=== PATIENT | female | born 1980 | race Caucasian/White ===

== ENCOUNTER → 2019-07-24 15:16 | Outpatient (CLI) | payer OTHER, SELFPAY ==
[2019-07-24 15:36] LABS: Basophils % 0.4 % (0.1-2.0); Eosinophils # 0.1 K/mm3 (0.0-0.4); Eosinophils % 0.8 % (0.1-12.0); Hemoglobin 14.1 g/dL (12.2-16.2); Lymphocytes # 2.7 K/mm3 (0.7-4.5); Lymphocytes % 27.6 % (10-50); Mean Corpuscular HGB Conc 33.6 g/dL (31.8-35.4); Mean Corpuscular Hemoglobin 30.2 pg (27.0-31.2); Mean Corpuscular Volume 89.9 fl (81-99); Mean Platelet Volume 7.4 fl (7.4-10.4); Monocytes # 0.7 K/mm3 (0.1-1.0); Monocytes % 7.5 % (1.7-9.3); Neutrophils # 6.2 K/mm3 (1.8-7.8); Neutrophils % 63.6 % (37.0-80.0); Platelet Count 291 K/mm3 (142-424); Red Blood Count 4.67 M/mm3 (4.20-5.40); Red Cell Distribution Width 12.3 % (11.5-17.5); White Blood Count 9.7 K/mm3 (4.8-10.8)
--- NOTE | 2019-07-24 15:37 | ECG_ITS ---
APPROVED REPORT Exam: Resting ECG HR:99 bpm ECG Measurements Heart Rate 99 AXES HI 146 P 85 QRSd 80 QRS 95 QT 338 T 63 QTc 433 <Conclusion> Normal sinus rhythm Rightward axis Borderline ECG Electronically signed by : Viktro Jo, 07/24/2019 15:55:16
--- NOTE | 2019-07-24 15:43 | CA_ITS ---
APPROVED REPORT EXAM: Comprehensive 2D, Doppler, and color-flow Echocardiogram Orchestra Leader: Monica Tovar RT(R) Ht: 5 ft 1 in Wt: 127lbs BSA: 1.56 BP: 188/85 mmHg Indications: CP, MVP, heart murmur, palpitations, HTN, TROTTER, chest tightness 2D Dimensions Aortic Root 2.20 cm F: 2.7 - 3.3 Left Atrium 2.60 cm F: 2.7 - 3.8 LVOT 1.89 cm (M/F) 1.5-2.5 M-Mode Dimensions RVDd 2.16 cm (0.9-2.6) LVDd 4.28 cm (3.5-5.7) LVDs 2.91 cm (3.5-5.7) IVSd 0.79 cm (0.6-1.1) PWd 0.61 cm (0.6-1.1) EF (Teich) 60.50% FS 32.00% EDV (Teich) 82.20 mL ESV (Teich) 32.50 mL LV Diastology E/A Ratio 1.15 Mitral Valve MV A Velocity 85.00 (40-130 cm/s) Left Ventricle Left atrium is normal size, left ventricle is normal size, there is no concentric left ventricular hypertrophy, visually estimated ejection fraction 55% with no regional wall motion abnormality, diastolic parameters are within normal range. Right Ventricle Right atrium and right ventricular normal size and contractility. Aortic Valve Aortic valve is grossly normal, there is no aortic stenosis aortic insufficiency. Mitral Valve Mitral valve is grossly normal, there is no mitral stenosis, there is trace mitral regurgitation. Tricuspid Valve Tricuspid valve is grossly normal, there is trace tricuspid regurgitation. Tricuspid regurgitation jet velocity is inadequate for calculation of the right ventricular systolic pressure. Pulmonic Valve Pulmonic valve is poorly visualized. Great Vessels Aortic root is normal size. Pericardium No significant pericardial effusion noted. Conclusion 1. Normal left ventricular size, preserved left ventricular systolic function, visually estimated ejection fraction 55% with no regional wall motion abnormality, diastolic parameters are within normal range. 2. Trace mitral and tricuspid regurgitation. 3. No significant pericardial effusion noted. Electronically signed by : Kade Perez, 07/27/2019 06:21:24
[2019-07-24 15:53] LABS: D-Dimer < 100 ng/mL (0-400)
[2019-07-24 16:11] LABS: Alanine Aminotransferase 22 U/L (12-78); Albumin Level 3.9 gm/dL (3.4-5.0); Albumin/Globulin Ratio 1.2 (1.1-1.8); Alkaline Phosphatase 52 U/L (46-116); Anion Gap 14.7 mEq/L (5-15); Aspartate Amino Transferase 12 U/L (15-37); Bilirubin,Total 0.2 mg/dL (0.2-1.0); Blood Urea Nitrogen 10 mg/dL (7-18); CKMB Relative Index 1.3 U/L (0-4.0); Carbon Dioxide 25 mmol/L (21.0-32.0); Chloride 104 mmol/L (98-107); Creatine Kinase 76 U/L (26-192); Estimated Glomerular Filt Rate 94 ml/min (>60); GFR (African American) 114 ML/MIN (>60); Globulin 3.3 gm/dl (1.3-3.2); Glucose 108 mg/dL (74-106); Potassium 3.7 mmoL/L (3.5-5.1); Sodium 140 mmol/L (136-145); Total Protein,Serum 7.2 gm/dL (6.4-8.2); Troponin I < 0.02 ng/ml (0.00-0.06)
== END ==
PROVIDERS: Visit Provider Physician Assistant
DX: R07.9 Chest pain, unspecified (principal)
CPT/HCPCS: 36415; 80053; 82550; 82553; 84484; 85025; 85378; 93005; 93306

== ENCOUNTER → 2021-05-24 20:12 | Outpatient (CLI) | payer OTHER, SELFPAY | PROVIDERS: Visit Provider Nurse Practitioner Family | DX: Z20.822 Contact with and (suspected) exposure to COVID-19 (principal); U07.1 COVID-19 | CPT/HCPCS: U0003 ==

== ENCOUNTER 2024-08-04 16:32 | Outpatient (CLI) | payer OTHER, SELFPAY ==
--- NOTE | 2024-08-04 16:37 | MM_ITS ---
PROCEDURE INFORMATION: Exam: MG Bilateral Screening 3D Mammography Exam date and time: 08/04/2024 4:21 PM Age: 44 years old Clinical indication: Screening examination TECHNIQUE: Imaging protocol: Bilateral Screening tomosynthesis and 2D mammography including computer-aided detection (CAD) when performed. COMPARISON: No relevant prior studies available. FINDINGS: MAMMOGRAPHY: Breast composition: The breasts are heterogeneously dense, which may obscure small masses. Mass: None. Architectural distortion: None. Calcifications: No suspicious calcifications. Asymmetric density: None. Skin thickening: None. Axillary adenopathy: None. IMPRESSION: No mammographic evidence of malignancy. Annual screening is recommended unless otherwise clinically indicated. ASSESSMENT: BI-RADS Category 1: Negative.
== END 2024-08-04 23:59 | disposition home or self-care (01) ==
LOC: RAD 16:34
PROVIDERS: PCP Family Medicine; Visit Provider Family Medicine
DX: Z12.31 Encounter for screening mammogram for malignant neoplasm of breast (principal)
CPT/HCPCS: 77063; 77067

== ENCOUNTER 2025-07-20 10:41 | Outpatient (CLI) | payer OTHER, SELFPAY ==
--- OUTSIDE RECORDS SUMMARY | 2024-09-14 05:45 | XMS_ITS ---
Author Organization [facility] [place], [facility] Address [address] [place] [address] Care Team Providers Care Internal Control Consultant Name Role Phone Melissa Allen Unavailable [phone] Rachel Ferro Unavailable [phone] REASON FOR VISIT Annual Social History Sex Assigned At : Social History Observation Description Sex Assigned At Female Encounters Encounter Location Date Provider Diagnosis [facility] [address] [place] [address] 09/14/2024 Rachel Ferro Plan Of Treatment Next Appt Details Provider Name:Cary Nino , 10/05/2025 09:15:00 AM, [address], [place], [address], Progress Notes * Abigail VILLAVICENCIO BDOB:[birth year] (45 yo F)Acc No.[id number]:09/14/2024 Progress Note Patient: Ching Abigail fong Provider: Miladys FERRO APRN :1980 A ge:44 Y S ex:Female Date:09/14/2024 Address:[address] [place], [place] [address] Subjective: * Chief Complaints: * A nnual * Electronic signature of Rachel Ferro APRN on 07/20/2025 at 10:55 AM EST Sign off status: Pending Visit Status: R /S (Rescheduled) * Provider: Miladys FERRO APRN Date: 1 Generated for Dominic lyons/Sam/Pam on: 09/19/2024 10:55 AM EST
--- OUTSIDE RECORDS SUMMARY | 2025-07-20 10:55 | XMS_ITS | Patient Health Record ---
Author Organization [facility] Address [address] [place] [address] Care Team Providers Care Piecer Up Name Role Phone Melissa Allen Unavailable [phone] Rachel Ferro Unavailable [phone] Allergies Allergen (clinical drug ingredient) Drug/Non Drug Allergy documented on EMR Reaction Allergy Type Onset Date Status clindamycin CLINDAMYCIN PHOSPHATE Unspecified Drug Allergy 1 Active penicillin V PENICILLIN V POTASSIUM Unspecified Drug Allergy 06/24/2009 Active Results Component Value Reference Range Notes Pap w/HPV Reviewed date:10/05/2024 11:44:47 AM Interpretation:Pap normal, HPV negative Performing Lab:Evelyn HERNANDEZ [facility] - JULIEN CLIA ID [id number], [address], [address], [place] [address], Director - Scott Bains MD Notes/Report: Any Nucleic Acid Amplification testing is performed on the [employer] [place]. Diagnosis: Negative for intraepithelial lesion or malignancy. AP results FINAL BOOKKEEPERS SUPERVISOR CYTOLOGY REPORT DIAGNOSIS: Negative for intraepithelial lesion or malignancy. Specimen Adequacy: Satisfactory for interpretation with endocervical/transformat ion zone component present. Pertinent Clinical History/History of Surgery: Not provided Collection Technique: Not provided Results of Last Pap: Not provided LMP: . Date of Last Pap: Not provided Specimen Source: Cervical/Endocervical Specimen Type: ThinPrep Other Gynecological Patient Information: Not provided Recommendation: Follow-up based on current clinical guidelines and/or clinical consideration. Screening note: This specimen has been analyzed by the [employer] System, an interactive computer system which assists the lab in screening of ThinPrep Pap Test slides. Following imaging, the slide was reviewed by a Animal Keeper Head and/or Pathologist. Negative Educational Note: The pap screening test aids in the detection of premalignant and malignant states of the cervix. False positive and negative results may occur. It is not a diagnostic test. If abnormal cells are reported, follow-up based on current clinical guidelines and/or clinical consideration is recommended. Haylee Stokes Animal Keeper Head CPT Codes: 73701 ICD Codes: Z01.419 HPV High-Risk Negative Negative Reason For Referral No Information Medications Medication SIG (Take, Route, Frequency, Duration) Notes Start Date End Date Status Labetalol HCl 100 MG Tablet 1 tablet Ora lly Twice a day Active Escitalopram Oxalate 20 MG Tablet 1 tablet Orally Once a day Active Social History Tobacco Use: Social History Observation Description Date Details (start date - stop date) Never Smoker NA - NA Sex Assigned At : Social History Observation Description Sex Assigned At Female Social History Tobacco Use: Social Info Question Answer Notes Tobacco Control (Standard) Tobacco use: Nonsmoker Problems Problem Type SNOMED Code ICD Code Onset Dates Problem Status W/U Status Risk Notes Problem Gynecological examination normal ([id number] ) Cervical smear, as part of routine gynecological examination (Z01.419) 04/01/20 17 Active confirmed Annual without abnormal findings Vital Signs Blood pressure diastolic 72 mm Hg 09/28/2024 Height 64 in 09/28/2024 Blood pressure systolic 124 mm Hg 09/28/2024 Weight 143.0 lbs 09/28/2024 BMI 24.54 kg/m2 09/28/2024 Encounters Encounter Location Date Provider Diagnosis [facility] [address] [address] 09/28/2024 Rachel Ferro Senior Windows Systems Administrator exam without abnormal findings Z01.419 and Visit for screening mammogram Z12.31 Assessments Encounter Date Diagnosis (ICD Code) Assessment Notes Treatment Notes Treatment Clinical Notes Section Notes 09/28/2024 Senior Windows Systems Administrator exam without abnormal findings (ICD-10 - Z01.419) Normal annual exam Pap obtained BSE encouraged MMG UTD Follow up annual exam or PRN 09/28/2024 Visit for screening mammogram (ICD-10 - Z12.31) Plan Of Treatment Next Appt Details Provider Name:Cary Nino , 10/05/2025 09:15:00 AM, [address] [facility] [address], [place], [address], Insurance Providers Payer Name Payer Address Payer Phone Subscriber Number Group Number Insured Name Patient Relationship to Insured Coverage Start Date Coverage End Date [facility] [address] [address] [place], [place] [id number] Abigail Villavicencio Self - patient is the insured Medical (General) History Medical History History ICD Code Abnormal Pap Smear Herpes Mitral Valve Prolapse High Blood Pressure Surgical History Surgery Date(Month/Year) Ear tubes at a young age
--- OUTSIDE RECORDS SUMMARY | 2025-07-20 10:55 | XMS_ITS | Clinical Summary ---
Author Organization [facility] Address [address] [place] [id number] Care Team Providers Care Child Care Giver Name Role Phone Provider, No Known Primary Care Provider Allergies Active Allergy Reactions Criticality Noted Date Comments Clindamycin/Lincomycin GI Intolerance 6 Penicillins Rash Low 08/09/2016 Medications Vit-Fe Fumarate-FA ( 27-) 27-1 MG tablet tablet Take 1 tablet by mouth Daily. Active ibuprofen (ADVIL,MOTRIN) 600 MG tablet Take 1 tablet by mouth Every 6 (Six) Hours As Needed for mild pain (1-3). 60 tablet 08/11/2016 Active Active Problems Problem Noted Date Diagnosed Date Labor without complication 08/09/2016 Family History Medical History Relation Name Comments Coronary artery disease Maternal Grandmother Hypertension Maternal Grandmother Stroke Maternal Grandmother Relation Name Status Comments Maternal Grandmother Social History Tobacco Use Types Packs/Day Years Used Date Smoking Tobacco: Never Alcohol Use Standard Drinks/Week Comments No 0 (1 standard drink = 0.6 oz pur e alcohol) Abuse Screen Answer Date Recorded Unsafe at Home or Work/School Not on file Feels Threatened by Someone? Not on file 05/2023 Does Anyone Keep You from Co ntacting Others or Doint Things Outside the Home? Not on file 06/24/2023 Physical Sign of Abuse Present Not on file 1 Housing Stability Answer Date Recorded Current Living Arrangements Not on file 05/2023 Potentially Unsafe Housing Conditions Not on marcy e 06/24/2023 Family and Community Support Answer Sim e Recorded Help with Day-to-Day Activities Not on file 06/24/2023 Lonely or Isolated Not on file 06/24/2023 Employment Answer Date Recorded Do you want help finding or keeping work or a reinaldo b? Not on file 06/24/2023 Disabilities Answer Date Recorded Concentrating, Remembering, or Making Decisions Difficulty Not on file 06/24/2023 Doing Errands Independently Difficulty Not on fi le 06/24/2023 Education Answer Date Recorded Help with school or training? Not on file Preferred Language Not on file 06/24/2023 Comments No Sex and Gender Information Value Date Recorded Sex Assigned at Not on file Legal Sex Female 1:04 PM EDT Gender Identity Not on file Sexual Orientation Not on file Last Filed Vital Signs Vital Sign Reading Time Taken Comments Blood Pressure 111/64 08/11/2016 8:00 AM EST Pulse 77 08/11/2016 8:00 AM EST Temperature 36.6 C (97.8 F) 08/11/2016 8:00 AM EST Respiratory Rate 16 08/11/2016 8:00 AM EST Oxygen Saturation - - Inhaled Oxygen Concentration - - Weight 64.4 kg (142 lb) 08/09/2016 9:35 PM EST Height 154.9 cm (5' 1 ) 08/09/2016 9:35 PM EST Body Mass Index 26.83 08/09/2016 9:35 PM EST Plan of Treatment Health Maintenance Due Date Last Done Comments ANNUAL PHYSICAL 1980 Annual Gynecologic Pelvic an d Breast Exam 1980 HEPATITIS C SCREENING 1982 TDAP/TD VACCINES (1 - Tdap) 2001 MAMMOGRAM 2022 INFLUENZA VACCINE 04/16/2025 Pneumococcal Vaccine 0-49 Aged Out No longer eligible based on patient's age to complete this topic Insurance [facility] Advance Directives * Full Code (Latest Code Status on File) Date Activated Date Inactivated Comments 08/10/2016 12:12 AM 08/11/2016 2:26 PM * Full Code Date Activated Date Inactivated Comments 08/09/2016 9:50 PM 08/10/2016 12:12 AM Care Teams Child Care Giver Relationship Specialty Start Date End Date Provider, [place] [address] PCP - General 12/20/15
[2025-07-20 11:44] LABS: Hematocrit 39.8 % (37.0-47.0); Hemoglobin 13.5 g/dL (12.2-16.2); Immature Granulocytes % 0.4 %; Mean Corpuscular HGB Conc 33.9 g/dL (31.8-35.4); Mean Corpuscular Hemoglobin 29.4 pg (27.0-31.2); Mean Corpuscular Volume 86.7 fl (81-99); Nucleated Red Blood Cells % 0 %; Platelet Count 272 K/mm3 (142-424); Red Blood Count 4.59 M/mm3 (4.20-5.40); Red Cell Distribution Width-SD 37.0 fL; White Blood Count 5.7 K/mm3 (4.8-10.8)
[2025-07-20 12:16] LABS: Alanine Aminotransferase 18 U/L (12-78); Albumin Level 4.8 g/dl (3.5-5.0); Albumin/Globulin Ratio 1.7 (1.1-1.8); Alkaline Phosphatase 61 U/L (38-126); Anion Gap 13.3 mEq/L (5-15); Aspartate Amino Transferase 22 U/L (14-36); Bilirubin,Total 0.6 mg/dl (0.2-1.3); Blood Urea Nitrogen 11 mg/dl (7-17); Calcium 9.6 mg/dl (8.4-10.2); Carbon Dioxide 25 mmol/L (22.0-30.0); Chloride 102 mmol/L (98-107); Cholesterol 194 mg/dl (140-200); Creatinine,Serum 0.70 mg/dl (0.52-1.04); Estimated Glomerular Filt Rate 91 ml/min (>60); GFR (African American) 111 ML/MIN (>60); Globulin 2.9 g/dL (1.3-3.2); Glucose 106 mg/dl (74-100); HDL Cholesterol 48 mg/dl (40-60); Iron 137 ug/dL (37-170); Magnesium 1.8 mg/dl (1.6-2.3); Potassium 4.3 mmoL/L (3.5-5.1); Sodium 136 mmol/L (136-145); Total Protein,Serum 7.7 g/dl (6.3-8.2); Triglycerides 90 mg/dl (30-150)
[2025-07-20 12:34] LABS: 25-OH Vitamin D, Total 50.2 ng/mL (30-100)
[2025-07-20 12:35] LABS: Free T4 (Free Thyroxine) 0.88 ng/dl (0.78-2.19)
[2025-07-20 12:47] LABS: Thyroid Stimulating Hormone 1.10 uIU/mL (0.465-4.68)
[2025-07-20 13:06] LABS: Vitamin B12 713 pg/mL (239-931)
[2025-07-20 13:44] LABS: Folate > 20.00 ng/mL
== END 2025-07-20 23:59 | disposition home or self-care (01) ==
LOC: LAB 10:43
PROVIDERS: PCP Family Medicine; Visit Provider Nurse Practitioner Family
DX: I10 Essential (primary) hypertension (principal); R53.82 Chronic fatigue, unspecified; Z13.29 Encounter for screening for other suspected endocrine disorder; Z13.220 Encounter for screening for lipoid disorders
CPT/HCPCS: 36415; 80053; 80061; 82306; 82607; 82746; 83540; 83735; 84439; 84443; 85025

== ENCOUNTER 2025-08-23 10:02 | Outpatient (CLI) | payer OTHER, SELFPAY ==
--- NOTE | 2025-08-23 10:20 | MM_ITS ---
PROCEDURE INFORMATION: Exam: MG Bilateral Screening 3D Mammography Exam date and time: 08/23/2025 10:18 AM Age: 45 years old Clinical indication: Screening examination TECHNIQUE: Imaging protocol: Bilateral Screening tomosynthesis and 2D mammography including computer-aided detection (CAD) when performed. COMPARISON: MG MM DIG SCREENING MAMM BI W/CAD 08/04/2024 4:21 PM FINDINGS: MAMMOGRAPHY: Breast composition: The breasts are heterogeneously dense, which may obscure small masses. Mass: No suspicious masses. Architectural distortion: None. Calcifications: No suspicious calcifications. Asymmetric density: None. Skin thickening: None. Axillary adenopathy: None. IMPRESSION: No mammographic evidence of malignancy. Annual screening is recommended unless otherwise clinically indicated. ASSESSMENT: BI-RADS Category 1: Negative.
== END 2025-08-23 23:59 | disposition home or self-care (01) ==
LOC: RAD 10:03
PROVIDERS: PCP Family Medicine; Visit Provider Nurse Practitioner Family
DX: Z12.31 Encounter for screening mammogram for malignant neoplasm of breast (principal); R92.333 Mammographic heterogeneous density, bilateral breasts
CPT/HCPCS: 77063; 77067